=== PATIENT | female | born 1935 | race Caucasian/White ===

== ENCOUNTER 2017-04-21 08:24 | Inpatient (IN) | payer OTHER ==
[2017-04-15 09:07] VITALS: Ht 157.5 cm; Wt 74.1 kg
--- NOTE | 2017-04-15 09:41 | PAT Medication Instructions ---
Service Date Apr 15, 2017. Current Home Medication List Acetaminophen (Tylenol), 1,000 MG PO PRN Albuterol Sulfate (Proair Respiclick), 2 PUFFS INH Q4-6H Amlodipine (Norvasc), 5 MG PO QAM Apixaban (Eliquis), 5 MG PO BID Aspirin (Aspirin Ec), 81 MG PO QAM Atorvastatin (Lipitor), 40 MG PO QPM Cholecalciferol (Vitamin D3), 1 CAP PO QAM Citalopram Hydrobromide (Citalopram Hydrobromide), 30 MG PO QAM Furosemide (Lasix), 20 MG PO QAM Home O2 Therapy (Oxygen), 2 LITERS NA HS Lisinopril (Zestril), 5 MG PO QAM Lorazepam (Ativan), 0.5 MG PO PRN Nitroglycerin (Nitrostat), 0.4 MG UT PRN Sennosides-Docusate Sodium (Stool Softener), 1 TAB PO QAM [Oxybutynin], 10 MG PO QAM [Z Pack], 1 DOSE PO UD Medication Instructions For Your Scheduled Surgery - Continue as directed: Nitroglycerin (Nitrostat), 0.4 MG UT PRN - Check with Stable Manager for instructions; will need to hold x 72 hours prior to surgery for spinal anesthesia: Apixaban (Eliquis), 5 MG PO BID - Hold the following medications the morning of surgery: Furosemide (Lasix), 20 MG PO QAM Sennosides-Docusate Sodium (Stool Softener), 1 TAB PO QAM Lisinopril (Zestril), 5 MG PO QAM Cholecalciferol (Vitamin D3), 1 CAP PO QAM - Take the following medications the morning of surgery with a sip of water OTHERWISE NOTHING TO EAT OR DRINK AFTER MIDNIGHT: [Oxybutynin], 10 MG PO QAM Acetaminophen (Tylenol), 1,000 MG PO PRN (may take if needed up to 4 hours prior to surgery) Albuterol Sulfate (Proair Respiclick), 2 PUFFS INH Q4-6H (use if needed; BRING TO HOSPITAL) Aspirin (Aspirin Ec), 81 MG PO QAM Amlodipine (Norvasc), 5 MG PO QAM Lorazepam (Ativan), 0.5 MG PO PRN Citalopram Hydrobromide (Citalopram Hydrobromide), 30 MG PO QAM - Take the following medications as scheduled the night before surgery: Acetaminophen (Tylenol), 1,000 MG PO PRN Albuterol Sulfate (Proair Respiclick), 2 PUFFS INH Q4-6H Lorazepam (Ativan), 0.5 MG PO PRN Atorvastatin (Lipitor), 40 MG PO QPM If you have any questions please call us at [phone] or [phone] or [phone]
[2017-04-15 10:27] LABS: BASO % 0.5 %; BASO ABS # 0.03 K/uL (0-0.2); EOS % 1.4 %; EOS ABS # 0.08 K/uL (0-0.5); HEMATOCRIT 41.2 % (37-47); HEMOGLOBIN 13.5 g/dL (12.0-16.0); IG# 0.02 K/uL (0.00-0.02); LYMPH % 29.2 %; MEAN CELL VOLUME 97.6 fL (80-100); MEAN CORPUSCULAR HGB CONC 32.8 g/dl (32-36); MEAN PLATELET VOLUME 10.1 fL (7.4-10.4); MONO ABS # 0.58 K/uL (0.11-0.59); NEUT % 58.6 %; NEUT ABS # 3.41 K/uL (1.4-6.5); PLATELET COUNT 190 K/uL (130-400); RED CELL DISTRIBUTION WIDTH CV 13.6 % (11.5-14.5); RED CELL DISTRIBUTION WIDTH SD 48.4 fL (36.4-46.3); WHITE BLOOD COUNT 5.82 K/uL (4.8-10.8)
[2017-04-15 10:38] LABS: PTT PATIENT 28.2 SECONDS (21.0-31.0)
--- NOTE | 2017-04-15 10:44 | DIAGNOSTIC IMAGING REPORT ---
CHEST 2 VIEWS ROUTINE CLINICAL HISTORY: 81 years-old Female presenting with preoperative assessment, no chest complaints. TECHNIQUE: PA and lateral views of the chest were obtained. COMPARISON: None. FINDINGS: Atherosclerosis of aortic arch. Cardiac silhouette enlarged. Double density along the right heart border suggestive of left atrial enlargement. Coronary stents or coronary calcification also noted. Lungs and pleural spaces clear. Osseous structures normal. Upper abdomen normal. IMPRESSION: 1. Cardiomegaly. No acute cardiopulmonary disease. Electronically signed by: Hernandez Donald M.D. 04/15/2017 10:43 AM Dictated Date/Time: 04/15/2017 10:42 AM
[2017-04-15 10:58] LABS: ALBUMIN 3.9 gm/dl (3.4-5.0); CALCIUM 9.4 mg/dl (8.5-10.1); CREATININE 0.92 mg/dl (0.60-1.20); POTASSIUM 4.8 mmol/L (3.5-5.1)
[2017-04-15 11:32] LABS: HEMOGLOBIN A1C 5.7 % (4.5-5.6)
--- NOTE | 2017-04-20 10:05 | HISTORY & PHYSICAL EXAMINATION ---
DATE OF ADMISSION: 04/21/2017 CHIEF COMPLAINT: Right hip pain. HISTORY OF PRESENT ILLNESS: The patient is an 81-year-old female with known osteoarthritis about her right hip. She has had 2 previous intraarticular corticosteroid injections. She continues to have significant pain and disability with activities of daily living. She has pain with prolonged weightbearing and standing activities. She has difficulty with any kneeling, bending, or squatting activities. Due to ongoing pain and disability, she now desires to proceed with right total hip arthroplasty. PAST MEDICAL HISTORY: Coronary artery disease, atrial fibrillation, depression, and osteoarthritis. PAST SURGICAL HISTORY: Cardiac stent, tonsillectomy, and hysterectomy. MEDICATIONS: ProAir 2 puffs q. 4-6 hours p.r.n., carvedilol 3.125 mg twice daily, Lipitor 40 mg daily, lisinopril 5 mg daily, furosemide 20 mg daily, nitroglycerin 0.4 mg sublingual p.r.n. chest pain, Eliquis daily, potassium chloride ER 10 mEq daily, stool softener daily, tizanidine 4 mg 3 times daily, vitamin D3 of 1000 units 2 tablets daily, Celexa 20 mg daily, valacyclovir 1 gram q. 12 hours, omega 3 fish oil daily, aspirin 81 mg daily, oxybutynin chloride ER 10 mg daily, amlodipine 5 mg every 2 days, and Ativan 0.5 mg 2 tablets 3 times daily p.r.n. ALLERGIES: No known drug allergies. SOCIAL HISTORY: She lives alone. REVIEW OF SYSTEMS: Noncontributory. PHYSICAL EXAMINATION: GENERAL: Well-nourished and well-developed elderly female, who appears her stated age. HEENT: Normocephalic and atraumatic. Extraocular movements intact. Oropharynx is pink and moist. NECK: Supple without adenopathy. LUNGS: Clear to auscultation bilaterally. HEART: Regular rate and rhythm. ABDOMEN: Soft, nontender, and nondistended. EXTREMITIES: The upper extremities are within normal limits. The right hip demonstrates limited range of motion. There is limitation of active and passive internal/external rotation with pain at end range. X-RAYS: X-rays were reviewed. She has moderate to severe osteoarthritis about the right hip with narrowed joint space. There are osteophytes about the femoral head and acetabulum. ASSESSMENT: Right hip degenerative joint disease. PLAN: Risks versus benefits were discussed. Consent was obtained. The patient's primary care physician is Dr. Potter from [facility] in [place]. Her supervisor pipeline is Dr. Forrest in [place]. We will proceed with right total hip arthroplasty upon preoperative workup and medical clearance.
[~2017-04-21] VITALS: Ht 157.5 cm; Wt 74.1 kg
[2017-04-21] VITALS (8 sets, daily range): BP systolic 126–181; BP diastolic 53–78; PULSE 77–91; TEMP 36.3–37; O2SAT 92–97
[~2017-04-21 08:24] MED LIST: ACET-1256 PO; ACETAMINOPHEN 500 MG TAB PO SCH; ALBU18002 INH; AMLO-110 PO; APIX1TAB3 PO; ASPI81TA28 PO; ATOR-24 PO; BUPIVACAINE 0.5 % 5 MG/1 ML PF 10ML VIAL ONE; CEFAZOLIN 1000MG IV PUSH 5 ML IV SCH; CHOL2000 PO; CITA20TA4 PO; CeleBREX 200 MG CAP PO SCH; DEXAMETHASONE 4 MG TAB PO SCH; FAMOTIDINE 20 MG TAB PO SCH; FURO-85 PO; GABAPENTIN 300 MG CAP PO SCH; LACTATED RINGER'S 1000ML 1,000 ML IV SCH; LACTATED RINGER'S 1000ML 500 ML IV SCH; LACTATED RINGER'S 1000ML IV SCH; LISI-729 PO; LORA-741 PO; METOCLOPRAMIDE HCL 10 MG TAB PO SCH; NTRGSL/4 UT; OXGN; OXYBUTYNIN PO; ROPIVACAINE 5MG/ML 30 ML 150 MG, BUPIVACAINE 0.5% MPF INJ 30 ML, EpINEphrine HCL INJ 0.... INFIL SCH; SENNTAB23 PO; Z PACK PO
--- NOTE | 2017-04-21 09:02 | History & Physical Bridge Note ---
H&P Re-Evaluation Bridge Note: I have examined the patient, reviewed the History & Physical and in the interval since the performance of the History & Physical I have noted the following changes of clinical significance: No changes noted
[2017-04-21] MEDS ORDERED: FENTANYL CITRATE INJ 50 MCG/1 ML 2 ML VIAL ONE (09:28)
[2017-04-21] MEDS ORDERED: LIDOCAINE HCL 2% 2 ML VIAL (20MG/ML) ONE (09:28)
[2017-04-21] MEDS ORDERED: MIDAZOLAM HCL 1 MG/ML 2ML VIAL ONE (09:28)
[2017-04-21] MEDS ORDERED: PROPOFOL IV EMULSION 10 MG/ML 20 ML VIAL IV ONE (09:28)
[2017-04-21] MEDS ORDERED: PROMETHAZINE HCL INJ 6.25 MG in SODIUM CHLORIDE 0.9% 50ML 50 ML IV PRN (10:15)
[2017-04-21] MEDS ORDERED: ATROPINE SULFATE 0.1 MG/ML 5ML SYR IV PRN (10:15)
[2017-04-21] MEDS ORDERED: FENTANYL CITRATE INJ 50 MCG/1 ML 2 ML VIAL IV PRN (10:15)
[2017-04-21] MEDS ORDERED: EpHEDrine SULFATE INJ 50 MG/ML AMP IV PRN (10:15)
[2017-04-21] MEDS ORDERED: ONDANSETRON INJ 2 MG/ML 2 ML VIAL IV PRN ×2 (10:15→12:00)
[2017-04-21] MEDS ORDERED: ORTHO JOINT ANESTHETIC ONE (10:24)
[2017-04-21] MEDS ORDERED: POVIDONE-IODINE OP SOLN 30 ML BTL ONE (10:24)
[2017-04-21] MEDS ORDERED: BACITRACIN 50000 UNIT VIAL ONE (10:24)
[2017-04-21] MEDS: TRANEXAMIC ACID INJ 1,000 MG in SYRINGE 0 ML IV SCH ×2 (10:28→15:11)
--- NOTE | 2017-04-21 11:40 | [facility] Post Operative Brief Note ---
Immediate Operative Summary Operative Date Apr 21, 2017. Pre-Operative Diagnosis Right Hip Degenerative Joint Disease Post-Operative Diagnosis Right Hip Degenerative Joint Disease Procedure(s) Performed Right Total Hip Arthroplasty Surgeon Dr Alcantara Computer Typesetter Keyliner Surgeon(s) Manuelito Markham PA-C Estimated Blood Loss 80cc Findings severe OA Specimens A: Right Femoral Head Complication(s) None Disposition Recovery Room / PACU
[2017-04-21] MEDS ORDERED: MoRPHine SULFATE 4 MG/ML 1 ML CARP\\VIAL IV PRN (12:00)
[2017-04-21] MEDS ORDERED: LORAZEPAM 0.5 MG TAB PO PRN (12:00)
[2017-04-21] MEDS ORDERED: CEFAZOLIN IV 1,000 MG in DEXTROSE 5% 50ML 50 ML IV SCH (12:00)
[2017-04-21] MEDS ORDERED: ALBUTEROL HFA 8 GM INHALER INH PRN (12:00)
[2017-04-21] MEDS ORDERED: MAGNESIUM HYDROXIDE SUSP 30 ML UDC PO PRN (12:00)
[2017-04-21] MEDS ORDERED: MoRPHine SULFATE 2 MG/ML CARP IV PRN (12:00)
[2017-04-21] MEDS ORDERED: OXYCODONE HCL IR 5 MG TAB (IMMEDIATE RELEASE) PO PRN (12:00)
[2017-04-21] MEDS ORDERED: NITROGLYCERIN 0.4 MG SL PER TAB CHARGE UT PRN (12:00)
[2017-04-21] MEDS ORDERED: ALUMINUM/MAGNESIUM/SIMETH (MAALOX MAX) 30 ML UDC PO PRN (12:00)
[2017-04-21] MEDS ORDERED: EpHEDrine SULFATE 50MG/5ML SYR ONE (12:03)
--- NOTE | 2017-04-21 12:10 | OPERATIVE REPORT ---
DATE OF OPERATION: 04/21/2017 PREOPERATIVE DIAGNOSIS: Osteoarthritis, left hip. POSTOPERATIVE DIAGNOSIS: Osteoarthritis, left hip. PROCEDURE: Left connective total hip arthroplasty. SURGEON: Dr. Alcantara. RETAIL VISUAL MERCHANDISER: Manuelito Markham PA-C. ANESTHESIA: Spinal. COMPLICATIONS: None. OPERATION AND FINDINGS: PROCEDURE: Following induction of adequate spinal anesthesia, the patient was placed in right lateral decubitus position and left Kashif-Langenbeck incision was made. Subcutaneous tissue was sharply dissected. Electrocautery used for hemostasis. The fascia was incised throughout the length of the wound and a belcher scissor placed beneath the short external rotators. The pyriformis was tagged with #1 Vicryl. The short external rotators were divided from the posterior aspect of the femur using electrocautery. These were swept posteriorly. A T-capsulotomy incision was made and the hip was dislocated using a combination of flexion, adduction, and internal rotation. Exposure of the femoral neck with old-style Hohmann and a blunt Hohmann was carried out and a femoral rasp was utilized as a guide for making the appropriate level femoral neck cut. This bone fragment was removed and reserved on the back table. Next, attention was turned to the acetabulum where bone hook was used to retract the femur while the offset retractors were placed anterior and posteriorly. A double-angled Hohmann was placed in superior and anterior position exposing the acetabulum nicely. Acetabular labrum as well as posterior capsule elements were removed using a long knife and a long pickup. Fovea centralis was cleared of all soft tissue. Sequential reamings were carried up to a 46 and decision was made to proceed with impaction of a 46 trabecular metal cup. This was impacted and held using a single 35 mm bone screw. The acetabular liner was placed with 15 of elevated posterior wall in the superior and posterior position. Next, attention was turned to the femoral portion of the case where a Bovie and pickup was used to further clear short external rotators from their insertion on the femur. Box osteotome was used to gain access to the femoral canal and the T-handled rasp and a rattail rasp were used to further open and lateral the canal. Sequentially raspings were carried up to a 3, which gave good fit and fill of the proximal femur. A trial reduction was carried out and a 132 degree femoral neck component was chosen as the size to be used. A -2.5-mm ceramic femoral head was impacted into position, +0 head was utilized. The trial reduction was stable in all degrees of rotation with no [id number] impingement. The hip was dislocated. The trial components were removed and the final femoral stem, neck, and femoral head combination were assembled on the back table and impacted into position. Hip was relocated. Range of motion checked once again successful and the wound was irrigated. The pyriformis repaired to the greater trochanter using #1 Vicryl [id number] suture. A Hemovac drain was placed and the fascia was closed using #1 Vicryl, subcutaneous tissue was closed using 0 Dexon, and skin was closed with eran. Sterile dressing of Adaptic, 4 x 4's, ABDs, and foam tape was applied. The patient tolerated the procedure well. Due to the complex nature of the procedure, the entire surgery was performed with the operational assistance of Manuelito Markham PA-C. The first assistant manager, under direct supervision, was involved in the actual performance of all aspects of the surgical procedure including hemostasis, tissue retraction and incision, instrument management, patient positioning, and wound closure. DISPOSITION: Recovery room, stable. I attest to the content of the Intraoperative Record and any orders documented therein. Any exception s are noted below.
--- NOTE | 2017-04-21 12:29 | DIAGNOSTIC IMAGING REPORT ---
SINGLE VIEW PELVIS; SINGLE VIEW RIGHT HIP CLINICAL HISTORY: Postoperative examination. FINDINGS: An AP portable view of the hips and pelvis with a crosstable lateral portable view of the right hip are obtained. A bipolar right hip arthroplasty is in near-anatomic alignment. No acute fracture is identified. There are expected postoperative changes overlying the right hip including subcutaneous gas, a surgical drain, and soft tissue swelling. Moderate arthritic changes seen in the left hip. Suture material projects over the pelvis. IMPRESSION: Expected postoperative findings status post right hip arthroplasty. No acute fracture is seen. Electronically signed by: Nehemias Pratt M.D. 04/21/2017 12:28 PM Dictated Date/Time: 04/21/2017 12:27 PM
--- NOTE | 2017-04-21 13:37 | Anesthesiology Progress Note ---
Anesthesia Post Op Note Date & Time Apr 21, 2017 at 13:37 Vital Signs Pain Intensity: 0 Vital Signs Past 12 Hours Date Time Temp Pulse Resp B/P (MAP) Pulse Ox O2 Delivery O2 Flow Rate FiO2 04/21/17 13:15 83 23 148/55 96 Nasal Cannula 4 04/21/17 13:00 83 19 157/60 96 Nasal Cannula 4 04/21/17 12:45 76 21 153/70 96 Nasal Cannula 4 04/21/17 12:30 36.7 83 22 148/57 96 Nasal Cannula 4 04/21/17 12:20 79 23 133/68 97 Nasal Cannula 4 04/21/17 12:10 76 18 143/60 96 Nasal Cannula 4 04/21/17 12:00 36.4 81 16 156/68 99 Nasal Cannula 4 04/21/17 09:46 36.8 78 18 181/78 96 Room Air Notes Mental Status: alert / awake / arousable, participated in evaluation Pt Amnestic to Procedure: Yes Nausea / Vomiting: adequately controlled Pain: adequately controlled Airway Patency, RR, SpO2: stable & adequate BP & HR: stable & adequate Hydration State: stable & adequate Neuraxial Anesthesia: was administered, sensory block is resolving Anesthetic Complications: no major complications apparent
--- NOTE | 2017-04-21 15:35 | Medical Consult ---
Consultation Date of Consultation: Apr 21, 2017. Attending Physician: Pee Alcantara M.D. Reason for Consultation: Post Op Medical Management History of Present Illness 81 year old female who is s/p right BRISEIDA today by Dr. Alcantara. Post operatively the patient is doing well. She reports her pain is well controlled. She has some mild residual numbness to the BLLE. No chest pain or shortness of breath. She denies abdominal pain and nausea. No lightheadedness or dizziness. She has not voided since surgery. Past Medical/Surgical History Medical Problems: (1) Afib Status: Chronic (2) Anxiety Status: Chronic (3) CAD (coronary artery disease) Permanent Comment: s/p stent in 2002 Status: Chronic (4) Depression Status: Chronic (5) Dyslipidemia Status: Chronic (6) HTN (hypertension) Status: Chronic Surgical Problems: (1) History of hysterectomy Status: Chronic Family History non contributory due to patient's advanced age Social History Smoking Status: Never Smoker Alcohol Use: occasionally Allergies Coded Allergies: No Known Allergies (Unverified , 04/21/17) Home Medications Tylenol (Acetaminophen) 500 Mg Tab 1,000 Mg PO PRN Nitrostat (Nitroglycerin) 0.4 Mg Tab 0.4 Mg UT PRN Stool Softener (Sennosides-Docusate Sodium) 1 Tab Tab 1 Tab PO QAM Vitamin D3 (Cholecalciferol) 2,000 Unit Cap 1 Cap PO QAM 90 Days Aspirin Ec (Aspirin) 81 Mg Tab 81 Mg PO QAM Ativan (Lorazepam) 0.5 Mg Tab 0.5 Mg PO PRN Zestril (Lisinopril) 5 Mg Tab 5 Mg PO QAM [Oxybutynin] 10 Mg PO QAM Lasix (Furosemide) 20 Mg Tab 20 Mg PO QAM Lipitor (Atorvastatin Calcium) 40 Mg Tab 40 Mg PO QPM Eliquis (Apixaban) 5 Mg Tab 5 Mg PO BID Norvasc (Amlodipine Besylate) 5 Mg Tab 5 Mg PO QAM Citalopram Hydrobromide 20 Mg Tab 30 Mg PO QAM 90 Days Oxygen Gas 2 Liters NA HS Proair Respiclick (Albuterol Sulfate) 108 Mcg/Act Aer 2 Puffs INH Q4-6H Current Inpatient Medications Current Inpatient Medications Medications (Trade) Dose Ordered Sig/Ian Route Start Time Stop Time Status Last Admin Dose Admin Lactated Ringer's 1,000 ml @ 60 mls/hr [id number] IV 04/21/17 06:00 04/21/17 22:39 Cefazolin Sodium 5 ml @ 1.667 mls/ min PREOP IV 04/21/17 06:00 04/21/17 18:00 04/21/17 10:43 1.667 MLS/MIN Acetaminophen (Tylenol Tab) 1,000 mg PREOP PO 04/21/17 06:00 04/21/17 18:00 Celecoxib (CeleBREX CAP) 200 mg PREOP PO 04/21/17 06:00 04/21/17 18:00 04/21/17 09:32 200 MG Dexamethasone (Decadron Tab) 8 mg PREOP PO 04/21/17 06:00 04/21/17 18:00 04/21/17 09:32 8 MG Famotidine (Pepcid Tab) 20 mg PREOP PO 04/21/17 06:00 04/21/17 18:00 04/21/17 09:32 20 MG Gabapentin (Neurontin Cap) 300 mg PREOP PO 04/21/17 06:00 04/21/17 18:00 04/21/17 09:31 300 MG Metoclopramide HCl (Reglan Tab) 10 mg PREOP PO 04/21/17 06:00 04/21/17 18:00 04/21/17 09:31 10 MG Tranexamic Acid 1000 mg/Syringe 10 ml @ 1 mls/min TODAY@06,0630 IV 04/21/17 06:00 04/21/17 16:00 04/21/17 10:28 1 MLS/MIN Lactated Ringer's 1,000 ml @ 15 mls/hr Q24H IV 04/21/17 06:00 04/22/17 05:59 Amlodipine Besylate (Norvasc Tab) 5 mg QAM PO 04/22/17 09:00 05/22/17 08:59 Atorvastatin Calcium (Lipitor Tab) 40 mg QPM PO 04/21/17 21:00 05/21/17 20:59 Citalopram Hydrobromide (celeXA TAB) 30 mg QAM PO 04/22/17 09:00 05/22/17 08:59 Lisinopril (Zestril Tab) 5 mg QAM PO 04/22/17 09:00 05/22/17 08:59 Lorazepam (Ativan Tab) 0.5 mg DAILY PRN PO 04/21/17 12:00 05/21/17 11:59 Nitroglycerin (Nitrostat Tab) 0.4 mg PRN PRN UT 04/21/17 12:00 05/21/17 11:59 Non-Formulary Medication (Albuterol Sulfate (Proair Respiclick)) 2 puffs Q4-6H INH 04/21/17 12:00 05/21/17 11:59 UNV Oxybutynin Chloride (Ditropan-Xl Tab) 10 mg QAM PO 04/22/17 09:00 05/22/17 08:59 Morphine Sulfate (MoRPHine SULFATE INJ) 2 mg Q4HWA PRN IV 04/21/17 12:00 05/05/17 11:59 Morphine Sulfate (MoRPHine SULFATE INJ) 4 mg Q4HWA PRN IV 04/21/17 12:00 05/05/17 11:59 Potassium Chloride/Dextrose/ Sod Cl 1,000 ml @ 100 mls/hr Q10H IV 04/21/17 15:05 04/22/17 15:04 Oxycodone HCl (Roxicodone Immediate Rel Tab) 1 TABLET FOR PAIN RATING... Q4H PRN PO 04/21/17 12:00 05/05/17 11:59 Acetaminophen (Tylenol Tab) 1,000 mg Q8H PO 04/21/17 16:00 05/21/17 15:59 Magnesium Hydroxide (Milk Of Magnesia Susp) 30 ml Q6H PRN PO 04/21/17 12:00 05/21/17 11:59 Senna (Senokot Tab) 17.2 mg HS PO 04/21/17 21:00 05/21/17 20:59 Docusate Sodium (coLACE CAP) 100 mg BID PO 04/21/17 21:00 05/21/17 20:59 Al Hydrox/Mg Hydrox/Simethicone (Maalox Max Susp) 15 ml Q4H PRN PO 04/21/17 12:00 05/21/17 11:59 Multivitamins (Multivitamin Tab) 1 tab QAM PO 04/22/17 09:00 05/22/17 08:59 Ondansetron HCl (Zofran Inj) 4 mg Q6H PRN IV 04/21/17 12:00 05/21/17 11:59 Ferrous Gluconate (Ferrous Gluconate Tab) 324 mg TIDM PO 04/21/17 17:45 05/21/17 17:44 Tramadol HCl (Ultram Tab) 1 TABLET FOR PAIN RATING... Q4H PRN PO 04/21/17 12:00 05/21/17 11:59 Apixaban (Eliquis Tab) 5 mg BID PO 04/22/17 21:00 05/22/17 20:59 UNV Aspirin (Ecotrin Tab) 81 mg QAM PO 04/22/17 09:00 05/22/17 08:59 Cefazolin Sodium 1000 mg/Syringe 5 ml @ 1.667 mls/ min Q8H IV 04/21/17 18:00 04/22/17 02:02 Review of Systems ROS per HPI, all other systems reviewed and negative Physical Exam Date Time Temp Pulse Resp B/P (MAP) Pulse Ox O2 Delivery O2 Flow Rate FiO2 04/21/17 14:10 91 22 145/70 (95) 92 Nasal Cannula 2.0 04/21/17 14:05 Nasal Cannula 2.0 04/21/17 14:03 Nasal Cannula 2.0 04/21/17 14:00 36.4 84 16 146/66 (92) 96 Nasal Cannula 2.0 04/21/17 13:30 37.0 86 20 147/65 (92) 93 Nasal Cannula 2.0 04/21/17 13:15 83 23 148/55 96 Nasal Cannula 4 04/21/17 13:00 83 19 157/60 96 Nasal Cannula 4 04/21/17 12:45 76 21 153/70 96 Nasal Cannula 4 04/21/17 12:30 36.7 83 22 148/57 96 Nasal Cannula 4 04/21/17 12:20 79 23 133/68 97 Nasal Cannula 4 04/21/17 12:10 76 18 143/60 96 Nasal Cannula 4 04/21/17 12:00 36.4 81 16 156/68 99 Nasal Cannula 4 04/21/17 09:46 36.8 78 18 181/78 96 Room Air General Appearance: WD/WN, no apparent distress Head: normocephalic, atraumatic Eyes: normal inspection, EOMI, sclerae normal ENT: hearing grossly normal, + pertinent finding (mucous membranes moist) Neck: supple, no JVD, trachea midline Respiratory/Chest: lungs clear, normal breath sounds, no respiratory distress Cardiovascular: no edema, normal peripheral pulses, + irregularly irregular ( rate controlled) Abdomen/GI: normal bowel sounds, non tender, soft, no organomegaly Extremities/Musculoskelatal: + pertinent finding (s/p right hip surgery, surgical dressing intact, drain in place draining bloody drainage, CSM checks intact to RLE) Neurologic/Psych: no motor/sensory deficits, alert, normal mood/affect, oriented x 3 Skin: normal color, warm/dry Assessment & Plan S/P RIGHT BRISEIDA - POD#0 - activity and wound care orders as per ortho - pain control with bowel regimen - PT/OT - monitor H/H for acute blood loss anemia and transfuse blood products PRN ATRIAL FIBRILLATION - previously was rate controlled on carvedilol however patient reports her pourer crane ladle recently d/c'd it due to bradycardia - rate currently controlled - anticoagulated on Eliquis which has been resumed by ortho CAD - stable, no reports of chest pain - continue ASA and statin (beta joaquina as above) HTN - BP controlled, continue lisinopril and amlodipine - holding furosemide for now to prevent perioperative dehydration, likely can resume in AM pending labs ANXIETY, DEPRESSION - continue citalopram DVT PROPHYLAXIS - Eliquis Thank you for this consultation. We will follow the patient with you during their hospital stay. You can reach a member of the [facility] Hospitalist Team 01/11 via pager @ . ADDENDUM: This is an 81 year old female with a PMH of CAD s/p stent, A. Fib, HTN - presents for a planned R hip surgery. Doing well post-operatively Denies any pain. wound vac in place on physical: irregularly irregular rhythm - rate is controlled Currently, coreg on hold as per outpatient records. If HR rises - low threshold to restart Coreg. Eliquis restarted as per ortho.
[2017-04-21] MEDS: ACETAMINOPHEN 500 MG TAB PO SCH (16:08)
[2017-04-21] MEDS: FERROUS GLUCONATE 324 MG TAB PO SCH (17:37)
[2017-04-21] MEDS: CEFAZOLIN IV 1,000 MG in SYRINGE 0 ML IV SCH (17:38)
[2017-04-21] MEDS: ATORVASTATIN 20 MG TAB PO SCH (21:21)
[2017-04-21] MEDS: SENNA 8.6 MG TAB PO SCH (21:22)
[2017-04-21] MEDS: DOCUSATE SODIUM 100 MG CAP PO SCH (21:22)
[2017-04-21] MEDS: D5W AND 1/2NSS + 20MEQ KCL 1,000 ML IV SCH (21:22)
[2017-04-22] VITALS (7 sets, daily range): BP systolic 125–153; BP diastolic 61–76; PULSE 57–76; TEMP 36.4–36.8; O2SAT 92–96
[2017-04-22] MEDS: ACETAMINOPHEN 500 MG TAB PO SCH ×2 (00:40→07:31)
[2017-04-22] MEDS: CEFAZOLIN IV 1,000 MG in SYRINGE 0 ML IV SCH (01:44)
[2017-04-22 06:01] LABS: HEMATOCRIT 32.4 % (37-47); HEMOGLOBIN 10.7 g/dL (12.0-16.0); IG# 0.04 K/uL (0.00-0.02); LYMPH % 6.2 %; LYMPH ABS # 0.72 K/uL (1.2-3.4); MEAN CELL VOLUME 95.9 fL (80-100); MEAN CORPUSCULAR HEMOGLOBIN 31.7 pg (25-34); MEAN PLATELET VOLUME 9.7 fL (7.4-10.4); MONO % 7.3 %; MONO ABS # 0.85 K/uL (0.11-0.59); NEUT % 86.2 %; NEUT ABS # 10.09 K/uL (1.4-6.5); PLATELET COUNT 155 K/uL (130-400); RED CELL DISTRIBUTION WIDTH CV 13.2 % (11.5-14.5); RED CELL DISTRIBUTION WIDTH SD 45.9 fL (36.4-46.3)
[2017-04-22] MEDS: D5W AND 1/2NSS + 20MEQ KCL 1,000 ML IV SCH (06:36)
[2017-04-22 06:39] LABS: CALCIUM 8.6 mg/dl (8.5-10.1); CREATININE 0.97 mg/dl (0.60-1.20); POTASSIUM 4.7 mmol/L (3.5-5.1)
--- NOTE | 2017-04-22 07:48 | Orthopedic Progress Note ---
Orthopedic Progress Note Date of Service Apr 22, 2017. Subjective Post OP Day: 1 Reports: feeling well Objective calves soft nontender, N/V intact, dressing C/D/I (Hemovac in place), toes mobile Date Time Temp Pulse Resp B/P (MAP) Pulse Ox O2 Delivery O2 Flow Rate FiO2 04/22/17 07:39 36.4 68 16 144/75 (98) 96 Room Air 04/22/17 03:26 36.7 76 16 135/76 (95) 94 Room Air 04/22/17 00:30 Room Air 04/21/17 23:00 36.6 86 16 142/53 (82) 95 Room Air 04/21/17 19:37 36.6 81 17 126/57 (80) 93 Room Air 04/21/17 16:37 36.6 79 17 136/64 (88) 95 Nasal Cannula 2.0 04/21/17 15:45 Nasal Cannula 2.0 04/21/17 15:30 36.3 77 17 130/64 (86) 97 Nasal Cannula 2.0 04/21/17 14:10 91 22 145/70 (95) 92 Nasal Cannula 2.0 04/21/17 14:05 Nasal Cannula 2.0 04/21/17 14:03 Nasal Cannula 2.0 04/21/17 14:00 36.4 84 16 146/66 (92) 96 Nasal Cannula 2.0 04/21/17 13:30 37.0 86 20 147/65 (92) 93 Nasal Cannula 2.0 04/21/17 13:15 83 23 148/55 96 Nasal Cannula 4 04/21/17 13:00 83 19 157/60 96 Nasal Cannula 4 04/21/17 12:45 76 21 153/70 96 Nasal Cannula 4 04/21/17 12:30 36.7 83 22 148/57 96 Nasal Cannula 4 04/21/17 12:20 79 23 133/68 97 Nasal Cannula 4 04/21/17 12:10 76 18 143/60 96 Nasal Cannula 4 04/21/17 12:00 36.4 81 16 156/68 99 Nasal Cannula 4 04/21/17 09:46 36.8 78 18 181/78 96 Room Air Laboratory Results 24 Hours: Test 04/22/17 05:37 White Blood Count 11.70 K/uL Red Blood Count 3.38 M/uL Hemoglobin 10.7 g/dL Hematocrit 32.4 % Mean Corpuscular Volume 95.9 fL Mean Corpuscular Hemoglobin 31.7 pg Mean Corpuscular Hemoglobin Concent 33.0 g/dl Platelet Count 155 K/uL Mean Platelet Volume 9.7 fL Neutrophils (%) (Auto) 86.2 % Lymphocytes (%) (Auto) 6.2 % Monocytes (%) (Auto) 7.3 % Eosinophils (%) (Auto) 0.0 % Basophils (%) (Auto) 0.0 % Neutrophils # (Auto) 10.09 K/uL Lymphocytes # (Auto) 0.72 K/uL Monocytes # (Auto) 0.85 K/uL Eosinophils # (Auto) 0.00 K/uL Basophils # (Auto) 0.00 K/uL Assessment & Plan Assessment: 81 yo female stable POD #1 s/p right BRISEIDA Plan: 1. Med management 2. DVT prophylaxis- restart Eliquis, SCDs 3. PT/OT 4. D/C planning- home w/ HH
--- NOTE | 2017-04-22 07:50 | Discharge Instructions ---
Discharge Instructions Date of Service Apr 22, 2017. Admission Reason for Admission: Right Hip Osteoarthritis Discharge Discharge Diagnosis / Problem: Right hip arthritis Discharge Goals Goal(s): Decrease discomfort, Improve function Activity Recommendations Activity Limitations: as noted below Weightbearing Status: Right weightbearing (as tolerated) . Instructions / Follow-Up Instructions / Follow-Up ACTIVITY RECOMMENDATIONS: SELF CARE INSTRUCTIONS AFTER TOTAL HIP REPLACEMENT Until the incision and soft tissues around your hip have healed, there is a possibility that the hip prosthesis could dislocate. A. Observe the following precautions to prevent dislocation: 1. Don't bend your hip greater than 90 degrees. 2. Avoid crossing your legs or ankles while standing or lying. 3. Sit with your feet placed 6 inches apart. 4. When sitting, keep your knees below your hips. Sit on a firm surface, avoid deep, soft chairs and couches. Use an elevated toilet seat in the bathroom. 5. Don't bend over at the waist. Use a long handled shoehorn and a sock aid to help you put on your shoes and socks. A interactive multimedia designer can help you excelsior picker objects that are too high or too low to reach. 6. Keep car riding to a minimum for at least one month after surgery. B. Your balance may be shaky for a while. Use crutches or a walker until directed by your doctor. C. Use hand rails when walking on stairs. D. Wear low heeled shoes with non-slip soles. E. Be sure that your floors are free of things that could trip you - throw rugs , electrical cords, small objects. Avoid wet and waxed floors, especially with crutches and canes. F. Try to walk several times a day with rest periods between. G. Continue with all the exercises taught to you in the hospital. Again, make walking a part of your daily routine. SPECIAL CARE INSTRUCTIONS: VERY IMPORTANT TO READ AND REVIEW A. You may still be at risk for phlebitis and blood clots. 1. Wear surgical stockings (SEEMA hose) for 2 weeks after surgery to improve circulation and reduce swelling. 2. Take Aspirin 81mg twice daily for 4 weeks or as directed by your doctor. This is your blood thinner. 3. High risk patients may be prescribed a stronger blood thinner if necessary. 4. If you are on Coumadin normally, your family doctor/state superintendent of schools should monitor your blood work. Expect a phone call the day of or the day after bloodwork is drawn to adjust your dosage. B. You must take antibiotics before having dental work, bladder, bowel and other surgery. Your doctor will provide you with a permanent card to carry describing precautions. C. Call [facility] if you have a fever, redness or swelling around the incision, cloudy drainage from incision, or sudden increase in pain in your hip, not relieved by your regular pain medication. D. Please call the office at if you have any concerns or questions about your operation or recovery. * YOU MAY SHOWER, NO TUB BATHS UNTIL CLEARED BY YOUR DOCTOR. * WEAR SEEMA HOSE 20 HOURS PER DAY FOR 2 WEEKS. * YOU SHOULD USE A WALKER OR CRUTCHES FOR 2-4 WEEKS. THIS WILL HELP PREVENT STRAIN ON YOUR HIP MUSCLE AND ALLOW IT TO HEAL PROPERLY. YOU MAY WEAN TO A CANE TOLERATED. * MOST PATIENTS WILL HAVE HOME NURSING FOR THERAPY. IF YOU DECIDE TO DO OUTPATIENT PHYSICAL THERAPY, PLEASE SCHEDULE THIS 3 TIMES PER WEEK. * Maintain zipline closure until follow-up with MD. FOLLOW UP VISIT: If appointment is not already scheduled: Please call [facility] to make a follow-up appointment for 2 weeks after your surgery at . Current Hospital Diet Patient's current hospital diet: AHA Diet (Heart Healthy) Discharge Diet Recommended Diet: AHA Diet (Heart Healthy) Procedures Procedures Performed: Right Total Hip Arthroplasty Pending Studies Studies pending at discharge: no Laboratory Results Hemoglobin A1c Test 04/15/17 09:52 Range/Units Estimated Average Glucose 117 mg/dl Hemoglobin A1c 5.7 H 4.5-5.6 % Medical Emergencies . Who to Call and When: Medical Emergencies: If at any time you feel your situation is an emergency, please call 911 immediately. . Non-Emergent Contact Non-Emergency issues call your: Surgeon Call Non-Emergent contact if: temperature is above 101.5, your pain is not controlled, wound has increased drainage, wound has increased redness . "Provider Documentation" section prepared by Malcom Weathers PA-C. . VTE Core Measure Inpt VTE Proph given/why not?: Other Anticoagulation (Eliquis), T.E.Preeti Stockalexei, SCD's [place] Drug Monitoring Program Search Results: patient reviewed within database, no issues identified
[2017-04-22] MEDS ORDERED: HYDROCODONE/ACETAMOPHEN 5/325MG TAB PO PRN (08:00)
--- NOTE | 2017-04-22 08:29 | Anesthesiology Progress Note ---
Anesthesia Post Op Note Date & Time Apr 22, 2017 at 08:29 Vital Signs Pain Intensity: 1.0 Vital Signs Past 12 Hours Date Time Temp Pulse Resp B/P (MAP) Pulse Ox O2 Delivery O2 Flow Rate FiO2 04/22/17 07:39 36.4 68 16 144/75 (98) 96 Room Air 04/22/17 07:25 Room Air 04/22/17 03:26 36.7 76 16 135/76 (95) 94 Room Air 04/22/17 00:30 Room Air 04/21/17 23:00 36.6 86 16 142/53 (82) 95 Room Air Notes Mental Status: alert / awake / arousable, participated in evaluation Pt Amnestic to Procedure: Yes Nausea / Vomiting: adequately controlled Pain: adequately controlled Airway Patency, RR, SpO2: stable & adequate BP & HR: stable & adequate Hydration State: stable & adequate Neuraxial Anesthesia: sensory block resolved Anesthetic Complications: no major complications apparent
[2017-04-22] MEDS: CITALOPRAM 20 MG TAB PO SCH (08:50)
[2017-04-22] MEDS: FERROUS GLUCONATE 324 MG TAB PO SCH ×3 (08:50→17:48)
[2017-04-22] MEDS: DOCUSATE SODIUM 100 MG CAP PO SCH ×2 (08:51→20:32)
[2017-04-22] MEDS: OXYBUTYNIN CHLORIDE 5 MG TABCR PO SCH (08:51)
[2017-04-22] MEDS: ASPIRIN 81 MG ECTAB PO SCH (08:52)
[2017-04-22] MEDS: MULTIVITAMIN TAB PO SCH (08:52)
[2017-04-22] MEDS: AMLODIPINE BESYLATE 5 MG TAB PO SCH (08:53)
[2017-04-22] MEDS: LISINOPRIL 5 MG TAB PO SCH (08:53)
--- NOTE | 2017-04-22 19:49 | Progress Note ---
Medicine Progress Note Date & Time of Visit: Apr 22, 2017 at 19:45. Subjective patient seen resting in chair, comfortable in good spirits denies chest pain, dyspnea, palpitations, dizziness ambulated today with no problems denies other symptoms Objective Last 8 Hrs Date Time Temp Pulse Resp B/P (MAP) Pulse Ox O2 Delivery O2 Flow Rate FiO2 04/22/17 15:22 Room Air 04/22/17 15:12 36.7 59 16 136/66 (89) 95 Room Air Physical Exam: General- oriented x 3, not in distress, speaks in sentences with no effort Eyes-EOMI, anicteric Neck- supple, no JVD, no adenopathy Lungs- clear to auscultation bilaterally Heart- regular rhythm; no murmur, normal rate Abdomen- normal bowel sounds, soft, nontender Extremities- no pretibial edema, no calf tenderness; peripheral pulses intact Neuro- alert, oriented x 3; no gross focal deficits Skin- warm & dry Laboratory Results: Last 24 Hours Test 04/22/17 05:37 White Blood Count 11.70 K/uL Red Blood Count 3.38 M/uL Hemoglobin 10.7 g/dL Hematocrit 32.4 % Mean Corpuscular Volume 95.9 fL Mean Corpuscular Hemoglobin 31.7 pg Mean Corpuscular Hemoglobin Concent 33.0 g/dl Platelet Count 155 K/uL Mean Platelet Volume 9.7 fL Neutrophils (%) (Auto) 86.2 % Lymphocytes (%) (Auto) 6.2 % Monocytes (%) (Auto) 7.3 % Eosinophils (%) (Auto) 0.0 % Basophils (%) (Auto) 0.0 % Neutrophils # (Auto) 10.09 K/uL Lymphocytes # (Auto) 0.72 K/uL Monocytes # (Auto) 0.85 K/uL Eosinophils # (Auto) 0.00 K/uL Basophils # (Auto) 0.00 K/uL RDW Standard Deviation 45.9 fL RDW Coefficient of Variation 13.2 % Immature Granulocyte % (Auto) 0.3 % Immature Granulocyte # (Auto) 0.04 K/uL Sodium Level 134 mmol/L Potassium Level 4.7 mmol/L Chloride Level 103 mmol/L Carbon Dioxide Level 27 mmol/L Anion Gap 4.0 mmol/L Blood Urea Nitrogen 21 mg/dl Creatinine 0.97 mg/dl Est Creatinine Clear Calc Drug Dose 43.6 ml/min Estimated GFR () 63.9 Estimated GFR (Non- 55.2 BUN/Creatinine Ratio 22.1 Random Glucose 177 mg/dl Calcium Level 8.6 mg/dl Total Bilirubin 0.4 mg/dl Direct Bilirubin 0.1 mg/dl Aspartate Amino Transf (AST/SGOT) 23 U/L Alanine Aminotransferase (ALT/SGPT) 21 U/L Alkaline Phosphatase 56 U/L Total Protein 6.0 gm/dl Albumin 3.0 gm/dl Assessment & Plan 81 year old female with history of CAD, A fib on Apixaban, HTN... 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 We will follow the patient with you during their hospital stay. You can reach a member of the [facility] Hospitalist Team 01/11 via pager @ . Current Inpatient Medications: Current Inpatient Medications Medications (Trade) Dose Ordered Sig/Ian Route Start Time Stop Time Status Last Admin Dose Admin Amlodipine Besylate (Norvasc Tab) 5 mg QAM PO 04/22/17 09:00 05/22/17 08:59 04/22/17 08:53 5 MG Atorvastatin Calcium (Lipitor Tab) 40 mg QPM PO 04/21/17 21:00 05/21/17 20:59 04/21/17 21:21 40 MG Citalopram Hydrobromide (celeXA TAB) 30 mg QAM PO 04/22/17 09:00 05/22/17 08:59 04/22/17 08:50 30 MG Lisinopril (Zestril Tab) 5 mg QAM PO 04/22/17 09:00 05/22/17 08:59 04/22/17 08:53 5 MG Lorazepam (Ativan Tab) 0.5 mg DAILY PRN PO 04/21/17 12:00 05/21/17 11:59 Nitroglycerin (Nitrostat Tab) 0.4 mg PRN PRN UT 04/21/17 12:00 05/21/17 11:59 Albuterol (Ventolin Hfa Inhaler) 2 puffs Q4H PRN INH 04/21/17 12:00 05/21/17 11:59 Oxybutynin Chloride (Ditropan-Xl Tab) 10 mg QAM PO 04/22/17 09:00 05/22/17 08:59 04/22/17 08:51 10 MG Morphine Sulfate (MoRPHine SULFATE INJ) 2 mg Q4HWA PRN IV 04/21/17 12:00 05/05/17 11:59 Morphine Sulfate (MoRPHine SULFATE INJ) 4 mg Q4HWA PRN IV 04/21/17 12:00 05/05/17 11:59 Magnesium Hydroxide (Milk Of Magnesia Susp) 30 ml Q6H PRN PO 04/21/17 12:00 05/21/17 11:59 Senna (Senokot Tab) 17.2 mg HS PO 04/21/17 21:00 05/21/17 20:59 04/21/17 21:22 17.2 MG Docusate Sodium (coLACE CAP) 100 mg BID PO 04/21/17 21:00 05/21/17 20:59 04/22/17 08:51 100 MG Al Hydrox/Mg Hydrox/Simethicone (Maalox Max Susp) 15 ml Q4H PRN PO 04/21/17 12:00 05/21/17 11:59 Multivitamins (Multivitamin Tab) 1 tab QAM PO 04/22/17 09:00 05/22/17 08:59 04/22/17 08:52 1 TAB Ondansetron HCl (Zofran Inj) 4 mg Q6H PRN IV 04/21/17 12:00 05/21/17 11:59 Ferrous Gluconate (Ferrous Gluconate Tab) 324 mg TIDM PO 04/21/17 17:45 05/21/17 17:44 04/22/17 17:48 324 MG Tramadol HCl (Ultram Tab) 1 TABLET FOR PAIN RATING... Q4H PRN PO 04/21/17 12:00 05/21/17 11:59 Apixaban (Eliquis Tab) 5 mg BID PO 04/22/17 21:00 05/22/17 20:59 Aspirin (Ecotrin Tab) 81 mg QAM PO 04/22/17 09:00 05/22/17 08:59 04/22/17 08:52 81 MG Acetaminophen/ Hydrocodone Bitart ([place] 5/325 Tab) 1-2 tabs po q6 prn pain Q6 PRN PO 04/22/17 08:00 05/06/17 07:59
[2017-04-22] MEDS: TRAMADOL HCL 50 MG TAB PO PRN (20:31)
[2017-04-22] MEDS: ATORVASTATIN 20 MG TAB PO SCH (20:32)
[2017-04-22] MEDS: SENNA 8.6 MG TAB PO SCH (20:33)
[2017-04-22] MEDS: APIXABAN 2.5 MG TAB PO SCH (20:34)
--- NOTE | 2017-04-23 07:10 | Orthopedic Progress Note ---
Orthopedic Progress Note Date of Service Apr 23, 2017. Subjective Post OP Day: 2 Reports: feeling well, pain controlled w PO medications, Denies: complaints, chest pain, SOB, nausea / vomiting, light headedness, calf pain Objective calves soft nontender, N/V intact, capillary refill less than 2 sec., incision C /D/I, A&O x3, toes mobile Date Time Temp Pulse Resp B/P (MAP) Pulse Ox O2 Delivery O2 Flow Rate FiO2 04/22/17 23:15 Room Air 04/22/17 22:48 36.8 63 16 135/69 (91) 92 Room Air 04/22/17 15:22 Room Air 04/22/17 15:12 36.7 59 16 136/66 (89) 95 Room Air 04/22/17 10:47 36.6 57 16 125/61 (82) 95 Room Air 04/22/17 08:55 63 131/71 (91) 04/22/17 07:39 36.4 68 16 144/75 (98) 96 Room Air 04/22/17 07:25 Room Air Assessment & Plan Assessment: 81 yo female stable POD #2 s/p right BRISEIDA Plan: 1. Med management 2. DVT prophylaxis- restart AIDAN Valentins 3. PT/OT 4. D/C planning- home w/ HH
[2017-04-23] MEDS ORDERED: RXC5 PO (07:14)
[2017-04-23] MEDS ORDERED: CLB200 PO (07:14)
[2017-04-23] MEDS ORDERED: ONDA8TAB6 PO (07:14)
[2017-04-23 07:29] VITALS: BP 146/74; PULSE 61; TEMP 36.7; O2SAT 96
[2017-04-23 08:54] VITALS: BP 134/80; PULSE 64
[2017-04-23] MEDS: CITALOPRAM 20 MG TAB PO SCH (08:55)
[2017-04-23] MEDS: FERROUS GLUCONATE 324 MG TAB PO SCH (08:55)
[2017-04-23] MEDS: DOCUSATE SODIUM 100 MG CAP PO SCH (08:56)
[2017-04-23] MEDS: MULTIVITAMIN TAB PO SCH (08:56)
[2017-04-23] MEDS: OXYBUTYNIN CHLORIDE 5 MG TABCR PO SCH (08:56)
[2017-04-23] MEDS: APIXABAN 2.5 MG TAB PO SCH (08:57)
[2017-04-23] MEDS: ASPIRIN 81 MG ECTAB PO SCH (08:57)
[2017-04-23] MEDS: LISINOPRIL 5 MG TAB PO SCH (08:58)
[2017-04-23] MEDS: AMLODIPINE BESYLATE 5 MG TAB PO SCH (08:58)
[2017-04-23] MEDS: TRAMADOL HCL 50 MG TAB PO PRN (08:58)
[2017-04-23 09:52] VITALS: BP 134/80; PULSE 64; TEMP 36.7; O2SAT 96
== END 2017-04-23 11:42 | disposition home health service (06) | DRG 470 ==
LOC: C.ACU 08:24 → C.3E 09:15 → ENRESERV 13:12
PROC: 0SR90JZ Replacement of Right Hip Joint with Synthetic Substitute, Open Approach (ICD-10-PCS; principal; 2017-04-21 11:15)
DX: M16.11 Unilateral primary osteoarthritis, right hip (principal); I48.91 Unspecified atrial fibrillation; I25.10 Atherosclerotic heart disease of native coronary artery without angina pectoris; I10 Essential (primary) hypertension; F32.9 Major depressive disorder, single episode, unspecified; F41.9 Anxiety disorder, unspecified; E66.9 Obesity, unspecified; Z68.30 Body mass index [BMI] 30.0-30.9, adult; Z95.5 Presence of coronary angioplasty implant and graft; Z99.81 Dependence on supplemental oxygen; Z79.01 Long term (current) use of anticoagulants; Z79.82 Long term (current) use of aspirin; Z79.899 Other long term (current) drug therapy